=== PATIENT | female | born 1985 | race Caucasian/White ===

== ENCOUNTER 2016-10-04 23:04 | Observation (INO) ==
[2016-10-05 00:29] LABS: Bilirubin,Urine Negative (Negative); Blood,Urine Negative (Negative); Clarity,Urine Cloudy (Clear); Color,Urine Yellow (Yellow); Glucose,Urine (UA) Normal (Normal); Ketones,Urine Negative (Negative); Leukocyte Esterase,Urine Trace (Negative); Nitrite,Urine Negative (Negative); PH,Urine 6.5 pH Units (5.0-8.0); Protein,Urine Negative (Neg-Trace); Specific Gravity,Urine 1.015 (1.010-1.025); Urobilinogen,Urine Normal (Normal)
[2016-10-05 00:31] LABS: Hyaline Casts,Urine None Seen per lpf (None-Few); RBC,Urine 0-3 per hpf (0-3); Squamous Epithelial Cell,Urine Many per lpf (None-Few)
[2016-10-05] MEDS ORDERED: Terbutaline 1 MG/ML VIAL SQ ONE (00:31)
--- NOTE | 2016-10-05 00:37 | OB/GYN Progress Note ---
Date of Encounter: 10/05/16 Time of Encounter: 00:35 - Assessment and Plan (1) 29 weeks gestation of Status: Acute (2) contractions Status: Acute Contractions spontaneously resolved with observation. Discharged home, to f/u as scheduled Subjective - Subjective Interval history: To L&D at 29 weeks with c/o feeling fatigue, upper abdominal pain today, now in her lower back. reports presence of contractions, had recent intercourse. Denies any vaginal bleeding, leaking of fluid, discharge, or dysuria. Objective - Vital Signs Vital Signs: Intake and Output 10/04/16 10/04/16 10/05/16 15:59 23:59 07:59 Other: Weight 85.1 kg - Exam FHR comments: appropriate for gestational age. Cervical dilation: closed/thick Comments: contractions present, every 4-6 minutes. - Labs Labs: Abnormal lab results Urine Clarity Cloudy (Clear) A 10/05/16 00:01 Ur Leukocyte Esterase Trace (Negative) H 10/05/16 00:01
[2016-10-05 00:43] LABS: Bacteria,Urine Moderate per hpf (None-Few)
[2016-10-05 00:44] LABS: Mucus,Urine Few (Few)
== END 2016-10-05 01:54 | disposition home or self-care (01) ==
LOC: 1NENULAB

== ENCOUNTER 2016-12-14 06:00 | Inpatient (IN) ==
[2016-12-14] MEDS ORDERED: Metoclopramide 10 MG/2 ML VIAL IVP PRN (06:09)
[2016-12-14] MEDS ORDERED: Famotidine 20 MG/2 ML VIAL IVP PRN (06:09)
[2016-12-14] MEDS ORDERED: Naloxone 0.4 MG/ML INJ IVP PRN (06:09)
[2016-12-14] MEDS ORDERED: *HR* Nalbuphine 20 MG/ML AMPUL IVP PRN (06:11)
[2016-12-14] MEDS ORDERED: D5% in 0.45% NACL 1,000 ML IVC SCH (06:15)
[2016-12-14] MEDS ORDERED: miSOPROStol 100 MCG TABLET PO SCH (06:15)
[2016-12-14] MEDS ORDERED: Lidocaine -MPF 1% 2 ML VIAL ONE (06:31)
[2016-12-14 06:47] LABS: Basophils % 0.1 %; Eosinophils # 0.1 K/mcL (0.0-0.6); Eosinophils % 1.4 %; Hematocrit 38.3 % (35.3-44.9); Hemoglobin 12.6 g/dL (11.5-15.4); Immature Granulocytes % 0.8 % (0-4); Lymphocytes # 1.9 K/mcL (0.6-4.6); Lymphocytes % 22.9 %; Mean Corpuscular HGB Conc 32.9 g/dL (31.6-35.5); Mean Corpuscular Hemoglobin 29.3 pg (28.0-33.3); Mean Corpuscular Volume 89.1 fL (83.0-100.0); Mean Platelet Volume 11.3 fL (9.4-12.4); Monocytes # 0.6 K/mcL (0.0-1.3); Monocytes % 7.1 %; Neutrophils # 5.7 K/mcL (1.6-8.9); Platelet Count 144 K/mcL (140-400); Red Cell Distribution Width 15.7 % (11.5-14.5); Segmented Neutrophils % 67.7 %
--- NOTE | 2016-12-14 08:21 | Anesthesia Evaluation PreOp ---
Date of Encounter: 12/14/16 Time of Encounter: 08:20 - Past History Planned Operation: labor epidural Cardiac History: Denies any Significant Hx Pulmonary History: Denies Any Significant HX HAND [employer] History: Denies Any Significant HX, Other (depression.) Other Medical History: Denies Any Significant HX Anesthesia History: No Prior Anesthetic Complications (no previous surgeries. Has had epidural anesthesia x8 without complication.) : Yes Alcohol Use: none, unknown Drug use: none, unknown Medications and Allergies Vit/FA 1 each PO DAILY #30 tablet 07/05/15 [Rx] Allergies No Known Allergies Allergy (Verified 12/14/16 06:33) - Meds/Allergy Pre-op Review Medications Reviewed: Yes Allergies Reviewed: Yes Beta Blockers on Current Med List: No Anesthesia Results - Labs 12/14/16 06:30 Anesthesia Exam 125/72, 82, 18, 99%. Height: 5'4" Weight: 88 kg NPO (# of Hours): 12 Pain Scale: 3 Pain Scale Used: Numeric (1 - 10) - HEENT Pupil (Motor): Pupils equal Mallampati: IV Teeth: Poor dentition Oral Opening: Greater than 3 - HAND [employer] LOC: Oriented HAND [employer] Motor: Normal RUE, Normal LUE, Normal RLE, Normal LLE, Normal Face HAND [employer] Sensory: Normal: RUE, LUE, RLE, LLE, Face - Cardiac Rhythm: Regular - Pulmonary Breath Sounds: bilateral Clear Respiratory Effort: Symmetrical Anesthesia Assess/Plan ASA Score: 2 Modified [place] Scale for Level of Consciousness: Cooperative, oriented, and tranquil Anesthetic Plan: Regional Monitoring Plan: Standard Monitors
[2016-12-14] MEDS ORDERED: Bupivacaine-MPF 0.25% 10 ML VIAL EP ONE (08:24)
[2016-12-14] MEDS ORDERED: *HR* FentaNYL (PF) 100 MCG/2 ML VIAL EP ONE (08:24)
[2016-12-14] MEDS ORDERED: Epidural Premix (fent/bupiv) 110 ML EP SCH (08:30)
[2016-12-14] MEDS ORDERED: Ringers Solution, Lactated 2,000 ML ONE (10:02)
--- NOTE | 2016-12-14 10:04 | OB/GYN History & Physical ---
Date of Encounter: 12/14/16 Time of Encounter: 10:00 Assessment and Plan (1) Grand multipara in labor in third trimester Current visit: Yes Status: Acute admit to labor and delivery (2) Elective induction of labor planned Current visit: No Status: Acute cytotec 50mcg PO x1 Carmona catheter for induction placed by Dr. Oumar Johnson or Epidural for pain management History of Present Illness Chief complaint: IOL at 39w[address]d [address] Dr[address] Oseguera HPI: Ms. Reyes is a 31 year old female at 39w5d presents to labor and delivery for IOL for gestational age greater than 39 weeks with history of shoulder dystocia and macrosomia. Patient reports +FM and contractions. Denies LOF. Patient had a carmona catheter placed for Induction per Dr. Oseguera. Carmona catheter ballon has expelled and patient would like to have an epidural for pain management. Blood type: O+, Rubella: Immune, Hep B: nonreactive, RPR: Negative, Varicella: Positive, GBS: Negative. Past Med Surg Social Fam HX - Past Medical History Source: patient Medical history: asthma Psychiatric history: depression - Past Surgical History Surgical History: no surgical history - Social History Smoking Status: Never smoker Smokeless Tobacco Status: No Alcohol use: none, unknown Drug use: none, unknown Current living situation: Home - Independent Recent Out of Country Travel Within the Last 8 Weeks: No Exposure or Possible Exposure to Illness During Travel: No - Family History Mother Living Status: Still Living Hx Family Cardiac Disorders: No Hx Family Respiratory Disorders: No Hx Family Cancer: No Hx Family GI Disorders: No Hx Family Endocrine Disorder: No Hx Family Neuromuscular Disorders: No Hx Family Neurologic Disorders: No Hx Family HEENT Disorders: No Hx Family Autoimmune Disorders: No Obstetrical History - Pregnancies : 10 Para: 8 Term: 8 : 0 Ab's: 1 Livin Medications and Allergies Vit/FA 1 each PO DAILY #30 tablet 07/05/15 [Rx] Allergies No Known Allergies Allergy (Verified 12/14/16 06:33) Review of System OB - Constitutional Constitutional ROS IM: no chills, no fever(s), no headache(s), no weakness - Cardiovascular Cardiovascular: no dyspnea, no edema, no palpitations, no syncope - Respiratory Respiratory: no cough, no dyspnea - Gastrointestinal Gastrointestinal: no cramping, no diarrhea, no heartburn, no nausea, no vomiting - Genitourinary Genitourinary: no abnormal vaginal bleeding, no dysuria, no flank pain, no urinary frequency, no urinary urgency, no vaginal discharge, no vaginal odor, no vaginal pruritis Exam - Vital Signs Vital signs: Initial Vital Signs Temp Pulse Resp BP 98.0 F 82 16 125/72 12/14/16 06:22 12/14/16 06:22 12/14/16 06:22 12/14/16 06:22 - Constitutional Constitutional: well developed, well nourished, no acute distress, average body habitus - HEENT HEENT: Normocephaly, Mucus Membranes Moist - Neck Neck exam: full ROM, supple - Lungs Respiratory exam: CTAB - Cardiovascular Cardiovascular exam: RRR, +S1, +S2 - Abdomen Abdomen: Present: bowel sounds normal, gravid, non tender - Extremities Extremities exam: full ROM, normal capillary refill, normal inspection Deep Tendon Reflex Grade: 2+ Normal - Vagina Vagina: Present: normal moisture - Uterus Uterus exam: Present: normal size, normal contour - Anus/Rectum Anus/Rectum: Present: normal perianal skin (SVE 4/80/-1, FHR 135 bpm moderate variability +15x15 accels no decels noted CAt. 1 tracing. Contractions 1-4min apart) Results Result Diagrams: 12/14/16 06:30 Abnormal lab results RDW 15.7 % (11.5-14.5) H 12/14/16 06:30 All other labs normal. - VTE Reasons for not Prescribing Prophylaxis: Treatment not Indicated - Low risk for VTE
[2016-12-14] MEDS ORDERED: *HR* FentaNYL (PF) 100 MCG/2 ML VIAL ONE (10:09)
[2016-12-14] MEDS ORDERED: Bupivacaine-MPF 0.25% 10 ML VIAL ONE (10:09)
[2016-12-14] MEDS ORDERED: Epidural Premix (fent/bupiv) 110 ML EP ONE ×2 (10:10→17:07)
[2016-12-14] MEDS ORDERED: Lidocaine 1% 20 ML MDV ONE (10:38)
--- NOTE | 2016-12-14 11:22 | OB Labor Progress Note ---
Date of Encounter: 12/14/16 Time of Encounter: 11:20 Labor Progress Note - Subjective Subjective: Patient resting with epidural in place. Patient denies any pain at this time. Alcaraz catheter draining clear yellow urine. Discussed POC with patient. patient denies any questions or concerns. - Cervix Cervix: 5/80/0 - Heart Tones Heart Tones: 135 bpm moderate variability +15x15 accels no decels noted. CAt. 1 tracing. - [place]: 2-4 min apart - Interventions Interventions: SVE, AROM moderate amount of clear fluid. Patient tolerated well. - Plan Plan: Continue labor management. Will start Pitocin per protocol.
[2016-12-14] MEDS ORDERED: Oxytocin 20 units/ LR 1000 mL 20 UNIT/1,000 ML BAG IVC SCH ×2 (11:30→20:05)
--- NOTE | 2016-12-14 12:05 | Anesthesia Procedures ---
Date of Encounter: 12/14/16 Time of Encounter: 10:15 Procedures: Anesthesia - Epidural/Spinal Patient ID/Chart reviewed: Yes Patient examined: Yes OB Eval: Gestational age: 39 OB Eval: : 10 OB Eval: Hx Para: 8 OB Eval: Contractions: Non-stressed pattern Consent Obtained: Yes Supplemental Oxygen: None/Room Air Site Prep: Aseptic Technique, Sterile prep and drape, Povidone-Iodine 1% Patient position: upright Local Anesthetic: Lidocaine 1% Amount of Local Anesthetic used: 5 Touhy Needle Gauge: 18 Touhy Needle Depth (cm): 6 Catheter Depth at Skin (cm): 18 Test Dose (1.5% Lido + Epi): Volume given (mls): 3 Test Dose Result: Negative Loading Dose: 0.25% Marcaine (mls): 8 Loading Dose: Fentanyl (mcg): 100 Loading Dose Administered: Thru Catheter Infusion Med: 0.125% Bupivacaine w/ 2 mcg/ml Fentanyl Infusion Rate (mls/hr): [address]: Tegaderm, Tape Interspace Used: L3-L4 Loss of Resistance (ROBERTA): Yes Blood: No CSF: No Paresthesia: No Procedure: Made several attempts to locate epidural space, was successful at L2-3 but catheter would not thread. Was successful at L3-4. Patient tolerated procedure very well and maternal VS and FHTs remained stable throughout procedure. Vitals + FHT's: 3 Vital Signs Time 1015 1040 1050 1055 BP 136/79 127/74 128/74 126/75 Pulse 80 79 68 69 FHTs 352 485 0177 120
--- NOTE | 2016-12-14 14:27 | OB Labor Progress Note ---
Date of Encounter: 12/14/16 Time of Encounter: 14:24 Labor Progress Note - Subjective Subjective: Patient comfortable with epidural in place. Patient denies any pain at this time. Pitocin at 10 milliunits. - Cervix Cervix: 5/80/0 - Heart Tones Heart Tones: 125 bpm moderate variability +15x15 accels no decels noted. CAt. 1 tracing - [place]: 2-4 min apart - Interventions Interventions: SVE, IUPC placed without difficulty. Patient tolerated well. Patient placed on left side with peanut ball. - Plan Plan: Continue labor managemen.
--- NOTE | 2016-12-14 17:13 | OB Labor Progress Note ---
Date of Encounter: 12/14/16 Time of Encounter: 17:11 Labor Progress Note - Subjective Subjective: Pt. comfortable with epidural. - Cervix Cervix: 6-7/80%/VTX/0 - Heart Tones Heart Tones: Reactive FHR - [place]: Contraction approx every 3 minutes
[2016-12-14] MEDS ORDERED: Ringers Solution, Lactated 1,000 ML ONE (18:04)
--- NOTE | 2016-12-14 18:47 | OB/GYN Procedure Note ---
Delivery - Delivery Date: 12/14/16 Provider: Daniel Oseguera Intrapartum events: none Delivery induction: carmona, misoprostol Delivery augmentation: rupture of membranes, pitocin Delivery monitor: external FHT, external uterine, internal uterine Anesthesia: epidural Estimated Blood Loss: 100 - Infant (s) Infant A Delivery Date: 12/14/16 Delivery Time: 18:27 Presentation: vertex Position: RUBIO Route of delivery: Gender: Female Viability: Viable Pounds: 7 Ounces: 7 Weight Gram: 3380 kg at 1 minute: 8 at 5 mins: 9 Shoulder Dystocia: not encountered Specimens collected: cord blood Placenta: spontaneous Cord: nuchal cord, 3 umbilical vessels, delivered through nuchal - Repair Episiotomy: none Laceration Description: None - Complications Delivery complications: none - Disposition Mom disposition: stable in LDR [place] disposition: stable in LDR - Comments Comments: Patient progressed to complete dilatation and had a spontaneous vaginal delivery of a viable female infant. scores were 8 and 9 at one and 5 minutes respectively, and the infant weighed 7 lbs. 7 oz. The placenta delivered spontaneously and appeared to be intact. No episiotomy was performed, no lacerations were noted. All sponge needle and his counts reported as correct. A nuchal cord 1 was present the infant was delivered through this loop of cord without difficulty. No shoulder dystocia was encountered. Estimate blood loss 100 mL.
[2016-12-14] MEDS ORDERED: Acetaminophen 325 MG TABLET PO PRN (20:05)
[2016-12-14] MEDS: Ibuprofen 600 MG TABLET PO PRN (20:35)
[2016-12-15 04:10] LABS: Basophils % 0.2 %; Eosinophils # 0.1 K/mcL (0.0-0.6); Eosinophils % 1.1 %; Hematocrit 33.3 % (35.3-44.9); Hemoglobin 11.3 g/dL (11.5-15.4); Immature Granulocytes % 0.5 % (0-4); Lymphocytes # 1.9 K/mcL (0.6-4.6); Lymphocytes % 16.6 %; Mean Corpuscular HGB Conc 33.9 g/dL (31.6-35.5); Mean Corpuscular Hemoglobin 29.9 pg (28.0-33.3); Mean Corpuscular Volume 88.1 fL (83.0-100.0); Mean Platelet Volume 11.2 fL (9.4-12.4); Monocytes # 0.9 K/mcL (0.0-1.3); Monocytes % 7.8 %; Neutrophils # 8.5 K/mcL (1.6-8.9); Platelet Count 170 K/mcL (140-400); Red Blood Count 3.78 M/mcL (3.82-4.97); Red Cell Distribution Width 15.6 % (11.5-14.5); Segmented Neutrophils % 73.8 %
[2016-12-15] MEDS: Ibuprofen 600 MG TABLET PO PRN ×3 (07:50→21:50)
[2016-12-15] MEDS ORDERED: Prenatal Vit/FA 1 EACH TABLET PO SCH (09:00)
--- NOTE | 2016-12-15 09:09 | OB/GYN Progress Note ---
Date of Encounter: 12/15/16 Time of Encounter: 09:07 - Assessment and Plan (1) Vaginal delivery Current Visit: Yes Status: Acute Continue current management. Will obtain PIH labs and urine P/C due to headache and increasing BP. If pain not managed on current PO medications will add Fiorcet. Subjective - Subjective Patient reports: appetite normal, other (severe frontal headache, but otherwise pain managed wtih po pain medication ) : doing well, bottle feeding Objective - Latest Vital Signs Latest vital signs: Vital Signs Temp Pulse Pulse Resp BP Pulse Ox 12/15/16 07:40 97.5 F L 62 16 134/85 96 12/15/16 03:50 97.5 F L 63 63 16 121/67 96 12/14/16 22:47 98 F 70 18 123/75 97 12/14/16 22:00 97.5 F L 59 16 133/87 96 12/14/16 21:00 98.5 F 72 16 115/77 95 Intake and Output 12/14/16 12/15/16 12/15/16 23:59 07:59 15:59 Intake Total 1350 / 1350 Output Total 150 / 150 1800 / 1800 Balance -150 / -150 -450 / -450 Intake: Oral 1350 / 1350 Output: Urine 150 / 150 1800 / 1800 Other: Weight 88 kg 84.912 kg Patient Weight 12/15/16 23:59 Weight 84.912 kg - Exam Lungs: bilateral: normal Chest: Normal S1, Normal S2 Extremities: Present: normal (+3 DTR) Abdomen: Present: normal appearance, soft Uterus: Present: normal, firm - Labs Labs: Laboratory Results - last 24 hr 12/15/16 03:58 WBC 11.5 H RBC 3.78 L Hgb 11.3 L Hct 33.3 L MCV 88.1 MCH 29.9 MCHC 33.9 RDW 15.6 H Plt Count 170 MPV 11.2 Immature Gran % 0.5 Seg Neutrophils % 73.8 Lymphocytes % 16.6 Monocytes % 7.8 Eosinophils % 1.1 Basophils % 0.2 Neutrophils # 8.5 Lymphocytes # 1.9 Monocytes # 0.9 Eosinophils # 0.1 Basophils # 0.0
[2016-12-15 09:54] LABS: Basophils % 0.1 %; Eosinophils # 0.1 K/mcL (0.0-0.6); Eosinophils % 0.9 %; Hematocrit 35.7 % (35.3-44.9); Hemoglobin 11.6 g/dL (11.5-15.4); Immature Granulocytes % 0.5 % (0-4); Immature Platelets 6.3 % (1.1-6.1); Lymphocytes # 1.4 K/mcL (0.6-4.6); Lymphocytes % 15.5 %; Mean Corpuscular HGB Conc 32.5 g/dL (31.6-35.5); Mean Corpuscular Hemoglobin 28.8 pg (28.0-33.3); Mean Corpuscular Volume 88.6 fL (83.0-100.0); Mean Platelet Volume 11.1 fL (9.4-12.4); Monocytes # 0.5 K/mcL (0.0-1.3); Monocytes % 5.7 %; Neutrophils # 7.1 K/mcL (1.6-8.9); Platelet Count 167 K/mcL (140-400); Red Blood Count 4.03 M/mcL (3.82-4.97); Red Cell Distribution Width 15.5 % (11.5-14.5); Segmented Neutrophils % 77.3 %
--- NOTE | 2016-12-15 09:56 | Anesthesia Progress Note ---
Date of Encounter: 12/15/16 Time of Encounter: 09:31 Anesthesia Note - Note Note: 12/15/16 09:45 patient VSS, c/o postural LOPEZ frontal sinus, never had this before. gets worse when getting up and sitting up in bed. no complicates vision, c/o of right ear auditory issues she cannot describe. recommendations increase hydration, abd. binder, increasing caffeine intake, informed just approaching 24 hrs post epidural to seek treatment in the ER if getting worse or any other symptoms appear like fever, stiff neck legs going numb etc...
[2016-12-15] MEDS: Acetaminophen/Butalbital/CaffeineTABLET PO PRN ×2 (10:01→18:38)
[2016-12-15 10:04] LABS: Alanine Aminotransferase 14 Units/L (0-55); Aspartate Amino Transferase 21 Units/L (5-34); BUN/Creatinine Ratio 12 (6-26); Blood Urea Nitrogen 8 mg/dL (7-20); Lactate Dehydrogenase 230 Units/L (159-327); Uric Acid 5.8 mg/dL (2.6-6.0); eGFR For African Americans > 60 (> 60); eGFR For Non-African Americans > 60 (> 60)
--- NOTE | 2016-12-15 19:42 | Discharge Summary ---
Date of Encounter: 12/15/16 Time of Encounter: 19:41 - Discharge Diagnosis (1) Vaginal delivery Priority: Primary Status: Acute Comments: Pt states spinal headache has improved. - Discharge Medications Prescriptions: Acetaminophen/Butalbital/Caffe [Fioricet] 1 each PO Q6HR PRN #10 tablet PRN Reason: Headache Ibuprofen [Motrin] 600 mg PO Q6HR PRN #60 tablet PRN Reason: Cramping Home Medications: Vit/FA 1 each PO DAILY #30 tablet 07/05/15 [Rx] Acetaminophen [Tylenol] 650 mg PO Q6HR PRN #0 tablet 12/15/16 [Rx] Acetaminophen/Butalbital/Caffe [Fioricet] 1 each PO Q6HR PRN #10 tablet [Rx] Ibuprofen [Motrin] 600 mg PO Q6HR PRN #60 tablet 12/15/16 [Rx] Allergies/Adverse Reactions: Allergies No Known Allergies Allergy (Verified 12/14/16 06:33) Data Procedures and tests throughout hospitalization: Laboratory Tests 12/14/16 12/15/16 12/15/16 06:30 03:58 09:39 WBC 8.4 11.5 H 9.2 RBC 4.30 3.78 L 4.03 Hgb 12.6 11.3 L 11.6 Hct 38.3 33.3 L 35.7 MCV 89.1 88.1 88.6 MCH 29.3 29.9 28.8 MCHC 32.9 33.9 32.5 RDW 15.7 H 15.6 H 15.5 H Plt Count 144 170 167 MPV 11.3 11.2 11.1 Immature Gran % 0.8 0.5 0.5 Seg Neutrophils % 67.7 73.8 77.3 Lymphocytes % 22.9 16.6 15.5 Monocytes % 7.1 7.8 5.7 Eosinophils % 1.4 1.1 0.9 Basophils % 0.1 0.2 0.1 Neutrophils # 5.7 8.5 7.1 Lymphocytes # 1.9 1.9 1.4 Monocytes # 0.6 0.9 0.5 Eosinophils # 0.1 0.1 0.1 Basophils # 0.0 0.0 0.0 Immature Plt Fraction 6.3 H BUN Creatinine Est GFR ( Amer) Est GFR (Non-Af Amer) BUN/Creatinine Ratio Uric Acid AST ALT Lactate Dehydrogenase 12/15/16 09:39 WBC RBC Hgb Hct MCV MCH MCHC RDW Plt Count MPV Immature Gran % Seg Neutrophils % Lymphocytes % Monocytes % Eosinophils % Basophils % Neutrophils # Lymphocytes # Monocytes # Eosinophils # Basophils # Immature Plt Fraction BUN 8 Creatinine 0.65 Est GFR ( Amer) > 60 Est GFR (Non-Af Amer) > 60 BUN/Creatinine Ratio 12 Uric Acid 5.8 AST 21 ALT 14 Lactate Dehydrogenase 230 Labs on day of discharge: Labs from last 24 hours 12/15/16 12/15/16 12/15/16 09:39 09:39 03:58 WBC 9.2 11.5 H RBC 4.03 3.78 L Hgb 11.6 11.3 L Hct 35.7 33.3 L MCV 88.6 88.1 MCH 28.8 29.9 MCHC 32.5 33.9 RDW 15.5 H 15.6 H Plt Count 167 170 MPV 11.1 11.2 Immature Gran % 0.5 0.5 Seg Neutrophils % 77.3 73.8 Lymphocytes % 15.5 16.6 Monocytes % 5.7 7.8 Eosinophils % 0.9 1.1 Basophils % 0.1 0.2 Neutrophils # 7.1 8.5 Lymphocytes # 1.4 1.9 Monocytes # 0.5 0.9 Eosinophils # 0.1 0.1 Basophils # 0.0 0.0 Immature Plt Fraction 6.3 H BUN 8 Creatinine 0.65 Est GFR ( Amer) > 60 Est GFR (Non-Af Amer) > 60 BUN/Creatinine Ratio 12 Uric Acid 5.8 AST 21 ALT 14 Lactate Dehydrogenase 230 Date of admission: 12/14/16 06:04 Primary care physician: Scarlett Webster, Consults: 12/14/16 20:05 Consult to Interior Wall Assembler [CONS] Routine Comment: Vaginal delivery, consult needed Discharging clinician: Lissette Akhtar Anticipated date of discharge: 12/15/16 - Patient Status Disposition: Home, Self-Care Condition: Good Functional capacity at discharge: independent ambulation Overall status at discharge: patient is back to baseline - Discharge Instructions Follow Up With: Daniel Oseguera DO [Partnered Physician] - (January 12, 2017 @ 1:00 pm) Scarlett Webster MD [Primary Care Provider] - - Diet and Activity Activity: resume usual activities as tolerated Diet: regular diet Hospital Course Reason for admission: IUP at term Delivery: Episiotomy: none Laceration: none Other procedures: none complications: spinal headache Discharge diagnosis: IUP at term delivered baby: female Hospital course: Delivery - Delivery Date: 12/14/16 Provider: Daniel Oseguera Intrapartum events: none Delivery induction: carmona, misoprostol Delivery augmentation: rupture of membranes, pitocin Delivery monitor: external FHT, external uterine, internal uterine Anesthesia: epidural Estimated Blood Loss: 100 - (s) Infant A Infant Delivery Date: 12/14/16 Delivery Time: 18:27 Presentation: vertex Position: RUBIO Route of delivery: Gender: Female Viability: Viable Pounds: 7 Ounces: 7 Weight Gram: 3380 kg at 1 minute: 8 at 5 mins: 9 Shoulder Dystocia: not encountered Specimens collected: cord blood Placenta: spontaneous Cord: nuchal cord, 3 umbilical vessels, delivered through nuchal - Repair Episiotomy: none Laceration Description: None - Complications Delivery complications: none - Disposition Mom disposition: stable in and appropriate for discharge Time Attestation: Total time spent providing and/or coordinating discharge services: Time Spent: Less than 30 minutes Exam - Constitutional Vitals: Temp Pulse Resp BP Pulse Ox 97.5 F L 62 16 134/85 96 12/15/16 07:40 12/15/16 07:40 12/15/16 07:40 12/15/16 07:40 12/15/16 07:40 General appearance IM: A&O X 3, pleasant, no acute distress - Respiratory Respiratory exam: Present: CTAB - Cardiovascular Cardiovascular exam IM: Present: RRR - GI/Abdominal GI/Abdominal exam IM: soft - Uterine Tone: Firm - Extremities Exam Extremities exam IM: Present: normal inspection - Neurological Exam Neurological exam: normal gait, oriented X3 - Psychiatric Additional comments: Reports good mood
[2016-12-15 23:06] VITALS: BP 146/94
== END 2016-12-15 22:30 | disposition home or self-care (01) | DRG 560 ==
LOC: 1NENULAB 06:04 → 1NENUOBS 20:55

== ENCOUNTER 2018-01-03 08:00 | Inpatient (IN) ==
[2018-01-03] MEDS ORDERED: Naloxone 0.4 MG/ML INJ IVP PRN (09:00)
[2018-01-03] MEDS ORDERED: Ondansetron 4 MG/2 ML VIAL IVP PRN (09:00)
[2018-01-03] MEDS ORDERED: *HR* Nalbuphine 10 MG/ML AMPUL IVP PRN (09:00)
[2018-01-03] MEDS ORDERED: Lidocaine 1% 20 ML MDV ID PRN (09:00)
[2018-01-03] MEDS ORDERED: Famotidine 20 MG/2 ML VIAL IVP PRN (09:00)
[2018-01-03] MEDS ORDERED: Lidocaine 1% 20 ML MDV INFILT PRN (09:00)
[2018-01-03] MEDS ORDERED: Lidocaine -MPF 1% 2 ML VIAL ONE (09:04)
[2018-01-03] MEDS ORDERED: Oxytocin 20 units/ LR 1000 mL 20 UNIT/1,000 ML BAG IVC SCH ×2 (09:15→18:39)
[2018-01-03 09:33] LABS: Basophils % 0.2 %; Eosinophils # 0.1 K/mcL (0.0-0.6); Eosinophils % 0.9 %; Hematocrit 33.2 % (35.3-44.9); Hemoglobin 10.8 g/dL (11.5-15.4); Immature Granulocytes % 0.4 % (0-4); Mean Corpuscular HGB Conc 32.5 g/dL (31.6-35.5); Mean Corpuscular Hemoglobin 27.7 pg (28.0-33.3); Mean Corpuscular Volume 85.1 fL (83.0-100.0); Monocytes # 0.6 K/mcL (0.0-1.3); Monocytes % 7.9 %; Neutrophils # 5.4 K/mcL (1.6-8.9); Platelet Count 152 K/mcL (140-400); Red Cell Distribution Width 14.2 % (11.5-14.5); Segmented Neutrophils % 66.6 %
[2018-01-03 09:56] LABS: Amphetamine Screen,Urine Negative ng/mL (Cutoff=1000); Barbiturate Screen,Urine Negative ng/mL (Cutoff=200); Benzodiazepines Screen,Urine Negative ng/mL (Cutoff=200); Cannabinoid Screen,Urine Negative ng/mL (Cutoff = 50); Cocaine Screen,Urine Negative ng/mL (Cutoff= 300); Opiate Screen,Urine Negative ng/mL (Cutoff=300); Phencyclidine Screen,Urine Negative ng/mL (Cutoff=25)
--- NOTE | 2018-01-03 10:01 | OB/GYN History & Physical ---
Date of Encounter: 01/03/18 Time of Encounter: 09:58 Assessment and Plan (1) 39 weeks gestation of Current visit: Yes Status: Acute (2) Elective induction of labor planned Current visit: Yes Status: Acute Induction of labor with Pitocin and cervical Alcaraz Cervical Alcaraz inserted without difficulty inflated with 60 mL balloon Nubain and epidural as desired Anticipate (3) Grand multipara in labor in third trimester Current visit: Yes Status: Acute History of Present Illness HPI: Ms. Reyes is a 32 year old female here for an elective induction of labor. Uncomplicated course with the exception of grand multiparity. History of shoulder dystocia with baby #8, no other problems or hemorrhage associated with deliveries. Patient received care from Dr. Oseguera Labs: O+, rubella and varicella immune, GBS negative, all other serologies negative Past Med Surg Social Fam HX - Past Medical History Medical history: asthma Psychiatric history: depression - Past Surgical History Surgical History: no surgical history - Social History Smoking Status: Never smoker Smokeless Tobacco Status: No Alcohol use: none Drug use: none - Family History Mother History Unknown: Yes Living Status: Still Living Hx Family Cardiac Disorders: No Hx Family Respiratory Disorders: No Hx Family Cancer: No Hx Family GI Disorders: No Hx Family Genitourinary Disorders: No Hx Family Endocrine Disorder: No Hx Family Musculoskeletal Disorders: No Hx Family Neuromuscular Disorders: No Hx Family Neurologic Disorders: No Hx Family HEENT Disorders: No Hx Family Autoimmune Disorders: No Hx Family Reproductive Disorders: No Hx Family Psychosocial Disorders: No Hx Family Medical Disorders: No Obstetrical History - Pregnancies : 11 Para: 9 Term: 9 : 0 Ab's: 1 Livin Medications and Allergies Vit/FA 1 each PO DAILY #30 tablet 07/05/15 [Rx] Doxylamine Succinate [Unisom] 25 mg PO HS PRN 01/03/18 [History] Vitamin B-6 200 mg PO DAILY 01/03/18 [History] 3 Allergy/AdvReac Type Severity Reaction Status Date / Time No Known Allergies Allergy Verified 12/14/16 06:33 Exam - Constitutional Constitutional: well developed, well nourished, no acute distress, average body habitus - Neck Neck exam: full ROM - Lungs Respiratory exam: CTAB - Cardiovascular Cardiovascular exam: RRR - Abdomen Abdomen: Present: gravid, non tender - Extremities Extremities exam: normal capillary refill, normal inspection - Vulva Vulva: bilateral: normal - Vagina Vagina: Present: normal moisture - Cervix Dilation: 3 Effacement: 80 Station: -2 Results Result Diagrams: 01/03/18 08:31 Abnormal lab results Hgb 10.8 g/dL (11.5-15.4) L 01/03/18 08:31 Hct 33.2 % (35.3-44.9) L 01/03/18 08:31 MCH 27.7 pg (28.0-33.3) L 01/03/18 08:31 All other labs normal. - VTE Reasons for not Prescribing Prophylaxis: Treatment not Indicated - Low risk for VTE
[2018-01-03] MEDS ORDERED: *HR* FentaNYL (PF) 100 MCG/2 ML VIAL EP ONE (10:47)
[2018-01-03] MEDS ORDERED: EPHEDrine 50 MG/ML VIAL IVP PRN (10:47)
--- NOTE | 2018-01-03 10:47 | Anesthesia Evaluation PreOp ---
Date of Encounter: 01/03/18 Time of Encounter: 10:45 - Past History Planned Operation: allegra Cardiac History: Denies any Significant Hx Pulmonary History: Denies Any Significant HX CREDIT RATING CHECKER History: Denies Any Significant HX Other Medical History: Denies Any Significant HX Anesthesia History: No Prior Anesthetic Complications, Past Anesthesia (no past anesthetics, but no family history of anesthetic reactions) : Yes () Alcohol Use: none Drug use: none Medications and Allergies Vit/FA 1 each PO DAILY #30 tablet 07/05/15 [Rx] Doxylamine Succinate [Unisom] 25 mg PO HS PRN 01/03/18 [History] Vitamin B-6 200 mg PO DAILY 01/03/18 [History] 3 Allergy/AdvReac Type Severity Reaction Status Date / Time No Known Allergies Allergy Verified 12/14/16 06:33 - Meds/Allergy Pre-op Review Medications Reviewed: Yes Allergies Reviewed: Yes Beta Blockers on Current Med List: No Anesthesia Results - Labs 01/03/18 08:31 Anesthesia Exam O2 Sat Height 1.63 m Weight 88.8 kg Height: 64 Weight: 195 - HEENT Pupil (Motor): Pupils equal Mallampati: II Teeth: Normal Oral Opening: Greater than 3 - CREDIT RATING CHECKER LOC: Oriented CREDIT RATING CHECKER Motor: Normal RUE, Normal LUE, Normal RLE, Normal LLE, Normal Face CREDIT RATING CHECKER Sensory: Normal: RUE, LUE, RLE, LLE, Face - Cardiac Rhythm: Regular Murmur: None JVD: No Carotid Bruit: No - Pulmonary Breath Sounds: bilateral Clear Respiratory Effort: Symmetrical Anesthesia Assess/Plan ASA Score: 2 Modified [place] Scale for Level of Consciousness: Cooperative, oriented, and tranquil Anesthetic Plan: Regional Monitoring Plan: Standard Monitors
[2018-01-03] MEDS ORDERED: Epidural Premix (fent/bupiv) 110 ML EP SCH (11:00)
[2018-01-03] MEDS: Ringers Solution, Lactated 1,000 ML IVC SCH ×2 (11:32→13:53)
[2018-01-03] MEDS ORDERED: Epidural Premix (fent/bupiv) 110 ML EP ONE (13:24)
[2018-01-03] MEDS ORDERED: Bupivacaine-MPF 0.25% 10 ML VIAL ONE (13:25)
--- NOTE | 2018-01-03 13:56 | Anesthesia Procedures ---
Date of Encounter: 01/03/18 Time of Encounter: 13:20 Procedures: Anesthesia - Epidural/Spinal Patient ID/Chart reviewed: Yes Patient examined: Yes OB Eval: Gestational age: 39 OB Eval: : 10 OB Eval: Hx Para: 9 OB Eval: Contractions: Non-stressed pattern Consent Obtained: Yes Supplemental Oxygen: None/Room Air Site Prep: Aseptic Technique Patient position: upright Local Anesthetic: Lidocaine 1% Amount of Local Anesthetic used: 3 Touhy Needle Gauge: 18 Touhy Needle Depth (cm): 7 Catheter Depth at Skin (cm): 12 Test Dose (1.5% Lido + Epi): Volume given (mls): 3 Test Dose Result: Negative Loading Dose: 0.25% Marcaine (mls): 7 Loading Dose: Fentanyl (mcg): 100 Loading Dose Administered: Thru Touhy Needle Infusion Med: 0.125% Bupivacaine w/ 2 mcg/ml Fentanyl Infusion Rate (mls/hr): [address]: Tegaderm Interspace Used: L3-L4 Loss of Resistance (ROBERTA): Yes Blood: No CSF: No Paresthesia: No
--- NOTE | 2018-01-03 14:48 | OB Labor Progress Note ---
Date of Encounter: 01/03/18 Time of Encounter: 14:46 Labor Progress Note - Subjective Subjective: Comfortable with epidural - Cervix Cervix: 4/80/-1 - Heart Tones Heart Tones: 125/moderate/+accels/-decels - [place]: 2 - Interventions Interventions: AROM for small amount clear fluid. - Plan Plan: Continue pitocin per policy Frequent repositioning Anticipate
--- NOTE | 2018-01-03 16:25 | OB/GYN Procedure Note ---
Delivery - Delivery Date: 01/03/18 Provider: Lissette Akhtar Intrapartum events: none Delivery induction: AROM, oxytocin, carmona Delivery monitor: external FHT, external uterine Anesthesia: epidural Estimated Blood Loss: 200 - Infant (s) Infant A Infant Delivery Date: 01/03/18 Infant Delivery Time: 16:04 Presentation: vertex Position: OA Route of delivery: Gender: Female Viability: Viable Pounds: 8 Ounces: 8 Weight Gram: 8860 kg at 1 minute: 8 at 5 mins: 9 Shoulder Dystocia: not encountered Shoulder Dystocia Maneuvers: Thomas maneuver, suprapubic pressure Shoulder dystocia time elapsed: 30 sec Specimens collected: cord blood Placenta: spontaneous - Repair Episiotomy: none Laceration Description: None - Complications Delivery complications: none Delivery comments: Elective induction of labor with Pitocin cervical [place] and AROM. Progressed to complete, maternal bearing down efforts of liveborn female. Vertex delivered OA, with restitution to LOT, 30 seconds shoulder dystocia encountered , maternal repositioning into Thomas, maternal effort did not deliver shoulders, maternal repositioning into Thomas again, suprapubic pressure applied anterior shoulder delivered under pubic bone, body easily followed. Father VAB assistant center director with delivery of body onto maternal abdomen. No nuchal cord encountered. Vigorous placed on maternal abdomen for drying and stimulation. Apgars 8/9. Placenta delivered spontaneously (Carmen) complete. Fundus massaged until firm at U Pitocin started per policy. Perineum intact no lacerations. EBL 200. Mother and were left bonding in recovery. - Disposition Mom disposition: stable in LDR disposition: stable in LDR
[2018-01-03] MEDS ORDERED: Ibuprofen 600 MG TABLET PO PRN (18:39)
[2018-01-03] MEDS ORDERED: Lanolin 28 GM TUBE TP PRN (18:39)
[2018-01-03] MEDS ORDERED: Acetaminophen 325 MG TABLET PO PRN (18:39)
[2018-01-03] MEDS ORDERED: Benzocaine/Menthol 56 GM AEROSOL SPRAY TP PRN (18:39)
[2018-01-04 04:59] LABS: Basophils % 0.1 %; Eosinophils # 0.1 K/mcL (0.0-0.6); Eosinophils % 1.4 %; Hematocrit 28.5 % (35.3-44.9); Immature Granulocytes % 0.3 % (0-4); Lymphocytes # 1.9 K/mcL (0.6-4.6); Lymphocytes % 21.3 %; Mean Corpuscular HGB Conc 32.3 g/dL (31.6-35.5); Mean Corpuscular Hemoglobin 27.7 pg (28.0-33.3); Mean Corpuscular Volume 85.8 fL (83.0-100.0); Mean Platelet Volume 11.7 fL (9.4-12.4); Monocytes # 0.7 K/mcL (0.0-1.3); Neutrophils # 6.1 K/mcL (1.6-8.9); Platelet Count 144 K/mcL (140-400); Red Blood Count 3.32 M/mcL (3.82-4.97); Red Cell Distribution Width 14.2 % (11.5-14.5); Segmented Neutrophils % 68.9 %
[2018-01-04 05:01] LABS: Hemoglobin 9.2 g/dL (11.5-15.4)
[2018-01-04] MEDS ORDERED: Prenatal Vit/FA 1 EACH TABLET PO SCH (09:00)
--- NOTE | 2018-01-04 11:34 | Discharge Summary ---
Date of Encounter: 01/04/18 Time of Encounter: 11:31 - Discharge Diagnosis (1) Breast feeding status of mother Priority: Secondary Status: Acute Comments: breastpump rx given (2) Vaginal delivery Priority: Primary Status: Acute Comments: Pt meeting milestones. She desires discharge home today. - Discharge Medications Prescriptions: Ibuprofen [Motrin] 600 mg PO Q6HR PRN #30 tablet PRN Reason: Cramping Breast Pump [BREAST PUMP] 1 each .ROUTE AD #1 each Docusate [Colace] 100 mg PO BID #30 capsule Home Medications: Vit/FA 1 each PO DAILY #30 tablet 07/05/15 [Rx] Benzocaine/Menthol [place] [Dermoplast [place]] 1 appl TP QID PRN aerosol 01/04/18 [Rx] Breast Pump [BREAST PUMP] 1 each .ROUTE AD #1 each 01/04/18 [Rx] Docusate [Colace] 100 mg PO BID #30 capsule 01/04/18 [Rx] Ferrous Sulfate 325 mg PO DAILY tablet 01/04/18 [Rx] Ibuprofen [Motrin] 600 mg PO Q6HR PRN #30 tablet 01/04/18 [Rx] Lanolin 1 appl TP QID PRN tube 01/04/18 [Rx] Allergies/Adverse Reactions: 3 Allergy/AdvReac Type Severity Reaction Status Date / Time No Known Allergies Allergy Verified 12/14/16 06:33 Data Procedures and tests throughout hospitalization: Laboratory Tests 01/03/18 01/03/18 01/04/18 08:31 09:15 04:20 WBC 8.1 8.9 RBC 3.90 3.32 L Hgb 10.8 L 9.2 L D Hct 33.2 L 28.5 L MCV 85.1 85.8 MCH 27.7 L 27.7 L MCHC 32.5 32.3 RDW 14.2 14.2 Plt Count 152 144 MPV 11.0 11.7 Immature Gran % 0.4 0.3 Seg Neutrophils % 66.6 68.9 Lymphocytes % 24.0 21.3 Monocytes % 7.9 8.0 Eosinophils % 0.9 1.4 Basophils % 0.2 0.1 Neutrophils # 5.4 6.1 Lymphocytes # 2.0 1.9 Monocytes # 0.6 0.7 Eosinophils # 0.1 0.1 Basophils # 0.0 0.0 Urine Opiates Screen Negative Ur Barbiturates Screen Negative Ur Phencyclidine Scrn Negative Ur Amphetamines Screen Negative U Benzodiazepines Scrn Negative Urine Cocaine Screen Negative U Marijuana (THC) Screen Negative Labs on day of discharge: Labs from last 24 hours 01/04/18 04:20 WBC 8.9 RBC 3.32 L Hgb 9.2 L D Hct 28.5 L MCV 85.8 MCH 27.7 L MCHC 32.3 RDW 14.2 Plt Count 144 MPV 11.7 Immature Gran % 0.3 Seg Neutrophils % 68.9 Lymphocytes % 21.3 Monocytes % 8.0 Eosinophils % 1.4 Basophils % 0.1 Neutrophils # 6.1 Lymphocytes # 1.9 Monocytes # 0.7 Eosinophils # 0.1 Basophils # 0.0 Date of admission: 01/03/18 16:04 Primary care physician: PCP NONE Consults: 01/03/18 18:39 Consult to Grape Pruner [CONS] Routine Comment: Vaginal delivery, consult needed Discharging clinician: Denisse Mckee Anticipated date of discharge: 01/04/18 - Patient Status Disposition: Home, Self-Care Condition: Good Functional capacity at discharge: independent ambulation Overall status at discharge: patient is progressing back to baseline - Discharge Instructions Follow Up With: NONE,PCP [Primary Care Provider] - Daniel Oseguera DO [Partnered Physician] - - Diet and Activity Activity: increase activity as tolerated Diet: regular diet Hospital Course Reason for admission: induction of labor Delivery: Episiotomy: none Laceration: none Other procedures: none complications: none Discharge diagnosis: IUP at term delivered baby: female Hospital course: - Delivery Date: 01/03/18 Provider: Lissette Akhtar Intrapartum events: none Delivery induction: AROM, oxytocin, carmona Delivery monitor: external FHT, external uterine Anesthesia: epidural Estimated Blood Loss: 200 - (s) A Delivery Date: 01/03/18 Delivery Time: 16:04 Presentation: vertex Position: OA Route of delivery: Gender: Female Viability: Viable Pounds: 8 Ounces: 8 Weight Gram: 8860 kg at 1 minute: 8 at 5 mins: 9 Shoulder Dystocia: not encountered Shoulder Dystocia Maneuvers: Thomas maneuver, suprapubic pressure Shoulder dystocia time elapsed: 30 sec Specimens collected: cord blood Placenta: spontaneous - Repair Episiotomy: none Laceration Description: None - Complications Delivery complications: none - Disposition Mom disposition: home PPD#1 disposition: home with mother, Time Attestation: Total time spent providing and/or coordinating discharge services: Time Spent: Less than 30 minutes Exam - Constitutional Vitals: Temp Pulse Resp BP Pulse Ox 97.4 F L 72 16 123/75 98 01/04/18 08:00 01/04/18 08:00 01/04/18 08:00 01/04/18 08:00 01/04/18 04:00 General appearance IM: A&O X 3 - Respiratory Respiratory exam: Present: CTAB - Cardiovascular Cardiovascular exam IM: Present: RRR - GI/Abdominal GI/Abdominal exam IM: soft - Uterine Tone: Firm - Extremities Exam Extremities exam IM: Present: normal inspection - Neurological Exam Neurological exam: normal gait, oriented X3 - Psychiatric Additional comments: reports good mood
[2018-01-04 16:14] VITALS: BP 115/73
== END 2018-01-04 17:35 | disposition home or self-care (01) | DRG 560 ==
LOC: 1NENULAB 08:25 → 1NENUOBS 18:38
PROVIDERS: ADMIT Student in an Organized Health Care Education/Training Program; ATTEND Student in an Organized Health Care Education/Training Program

== ENCOUNTER 2019-07-14 09:02 | Observation (INO) ==
[2019-07-17 16:26] LABS: Amphetamine Screen,Urine Negative ng/mL (Cutoff=1000); Barbiturate Screen,Urine Negative ng/mL (Cutoff=200); Benzodiazepines Screen,Urine Negative ng/mL (Cutoff=200); Cannabinoid Screen,Urine Negative ng/mL (Cutoff = 50); Cocaine Screen,Urine Negative ng/mL (Cutoff= 300); Opiate Screen,Urine Negative ng/mL (Cutoff=300); Phencyclidine Screen,Urine Negative ng/mL (Cutoff=25)
== END 2019-07-14 11:04 | disposition home or self-care (01) ==
LOC: 1NENULAB
PROVIDERS: ADMIT Registered Nurse; ATTEND Registered Nurse

== ENCOUNTER 2019-07-24 08:00 | Inpatient (IN) ==
[2019-07-24] MEDS ORDERED: Metoclopramide 10 MG/2 ML VIAL IVP PRN (08:37)
[2019-07-24] MEDS ORDERED: *HR* Nalbuphine 10 MG/ML AMPUL IVP PRN (08:37)
[2019-07-24] MEDS ORDERED: Famotidine 20 MG/2 ML VIAL IVP PRN (08:37)
[2019-07-24] MEDS ORDERED: Ondansetron 4 MG/2 ML VIAL IVP PRN (08:37)
[2019-07-24] MEDS ORDERED: Ringers Solution, Lactated 1,000 ML IVC SCH (08:45)
[2019-07-24] MEDS ORDERED: miSOPROStol 25 MCG TABLET PO PRN (10:01)
[2019-07-24 10:34] LABS: Basophils % 0.3 %; Eosinophils # 0.1 K/mcL (0.0-0.6); Eosinophils % 1.3 %; Hematocrit 34.2 % (35.3-44.9); Hemoglobin 11.1 g/dL (11.5-15.4); Immature Granulocytes % 0.5 % (0-4); Lymphocytes # 1.9 K/mcL (0.6-4.6); Lymphocytes % 24.4 %; Mean Corpuscular HGB Conc 32.5 g/dL (31.6-35.5); Mean Corpuscular Hemoglobin 28.1 pg (28.0-33.3); Mean Corpuscular Volume 86.6 fL (83.0-100.0); Mean Platelet Volume 11.7 fL (9.4-12.4); Monocytes # 0.7 K/mcL (0.0-1.3); Monocytes % 8.2 %; Neutrophils # 5.2 K/mcL (1.6-8.9); Platelet Count 141 K/mcL (140-400); Red Blood Count 3.95 M/mcL (3.82-4.97); Red Cell Distribution Width 16.2 % (11.5-14.5); Segmented Neutrophils % 65.3 %; White Blood Count 7.9 K/mcL (4.3-11.1)
[2019-07-24 11:08] LABS: Amphetamine Screen,Urine Negative ng/mL (Cutoff=1000); Barbiturate Screen,Urine Negative ng/mL (Cutoff=200); Benzodiazepines Screen,Urine Negative ng/mL (Cutoff=200); Cannabinoid Screen,Urine Negative ng/mL (Cutoff = 50); Cocaine Screen,Urine Negative ng/mL (Cutoff= 300); Opiate Screen,Urine Negative ng/mL (Cutoff=300); Phencyclidine Screen,Urine Negative ng/mL (Cutoff=25)
[2019-07-24] MEDS ORDERED: Bupivacaine-MPF 0.25% 10 ML VIAL EP ONE (12:25)
[2019-07-24] MEDS ORDERED: *HR* FentaNYL (PF) 100 MCG/2 ML VIAL EP ONE (12:25)
[2019-07-24] MEDS ORDERED: Epidural Premix (fent/bupiv) 110 ML EP SCH (12:30)
[2019-07-24] MEDS ORDERED: Oxytocin 20 units/ LR 1000 mL 20 UNIT/1,000 ML BAG IVC SCH ×2 (14:45→23:51)
[2019-07-24] MEDS ORDERED: Acetaminophen 325 MG TABLET PO PRN ×2 (18:54→23:51)
[2019-07-24] MEDS ORDERED: Lanolin 7 G OINT...G. TP PRN (23:51)
[2019-07-24] MEDS ORDERED: Benzocaine/Menthol 56 GM AEROSOL SPRAY TP PRN (23:51)
[2019-07-25] MEDS: Ibuprofen 600 MG TABLET PO PRN ×3 (00:12→21:51)
[2019-07-25] MEDS ORDERED: Prenatal Vit/FA 1 EACH TABLET PO SCH (09:00)
[2019-07-25 21:35] VITALS: BP 129/85
== END 2019-07-25 22:05 | disposition home or self-care (01) | DRG 560 ==
LOC: 1NENULAB 08:03 → 1NENUOBS 23:53
PROVIDERS: ADMIT Obstetrics & Gynecology; ATTEND Obstetrics & Gynecology

== ENCOUNTER 2021-04-03 11:42 | Observation (INO) ==
[2021-04-03] MEDS ORDERED: Ringers Solution, Lactated 1,000 ML ONE (12:51)
[2021-04-03] MEDS ORDERED: Ringers Solution, Lactated 1,000 ML IVC ONE (12:56)
[2021-04-03] MEDS ORDERED: Acetaminophen/Butalbital/CaffeineTABLET PO PRN (13:22)
[2021-04-03] MEDS ORDERED: Ondansetron 4 MG/2 ML VIAL IVP ONE (13:24)
[2021-04-03 13:33] LABS: Bacteria,Urine Few per hpf (None-Few); Bilirubin,Urine Negative (Negative); Blood,Urine Negative (Negative); Clarity,Urine Turbid (Clear); Color,Urine Yellow (Yellow); Glucose,Urine (UA) Normal (Normal); Ketones,Urine Negative (Negative); Leukocyte Esterase,Urine Large (Negative); Mucus,Urine Many per lpf (None-Few); Nitrite,Urine Negative (Negative); PH,Urine 6.5 pH Units (5.0-8.0); Protein,Urine 50 mg/dL (Neg-Trace); Specific Gravity,Urine 1.028 (1.010-1.025); Squamous Epithelial Cell,Urine Many per hpf (None-Few); Urobilinogen,Urine Normal (Normal); WBC,Urine 15-30 per hpf (0-3)
[2021-04-03 17:29] LABS: BUN/Creatinine Ratio 9 (6-26); Blood Urea Nitrogen 4 mg/dL (6-20); Calcium 8.5 mg/dL (8.6-10.3); Carbon Dioxide 25 mEq/L (23-29); Chloride 107 mEq/L (98-107); Glucose 97 mg/dL (70-105); Osmolality,Calculated 281 (280-300); Potassium 3.7 mEq/L (3.5-5.1); Sodium 137 mEq/L (136-145); eGFR For African Americans > 60 (> 60); eGFR For Non-African Americans > 60 (> 60)
== END 2021-04-03 18:12 | disposition home or self-care (01) ==
LOC: 1NENULAB
PROVIDERS: ADMIT Student in an Organized Health Care Education/Training Program; ATTEND Student in an Organized Health Care Education/Training Program

== ENCOUNTER 2021-07-09 12:00 | Inpatient (IN) ==
[2021-07-09] MEDS ORDERED: EPHEDrine 50 MG/ML VIAL IVP PRN (14:41)
[2021-07-09] MEDS ORDERED: Epidural Premix (fent/bupiv) 110 ML EP SCH (14:45)
[2021-07-09] MEDS ORDERED: Naloxone 0.4 MG/ML INJ IVP PRN (15:29)
[2021-07-09] MEDS ORDERED: Lidocaine 1% 20 ML MDV INFILT PRN (15:29)
[2021-07-09] MEDS ORDERED: Azithromycin 500 MG in 0.9 % Sodium Chloride 250 ML IVPB PRN (15:29)
[2021-07-09] MEDS ORDERED: Ondansetron 4 MG/2 ML VIAL IVP PRN (15:29)
[2021-07-09] MEDS ORDERED: Metoclopramide 10 MG/2 ML VIAL IVP PRN (15:29)
[2021-07-09] MEDS ORDERED: Famotidine 20 MG/2 ML VIAL IVP PRN (15:29)
[2021-07-09] MEDS ORDERED: *HR* Nalbuphine 10 MG/ML AMPUL IV PRN (15:29)
[2021-07-09] MEDS ORDERED: Ringers Solution, Lactated 1,000 ML IVC SCH (15:30)
[2021-07-09] MEDS ORDERED: miSOPROStoL 25 MCG TABLET PO PRN (15:41)
[2021-07-09 15:50] LABS: Basophils % 0.2 %; Eosinophils # 0.1 K/mcL (0.0-0.6); Eosinophils % 0.6 %; Hematocrit 32.3 % (35.3-44.9); Hemoglobin 10.6 g/dL (11.5-15.4); Immature Granulocytes % 0.2 % (0-4); Lymphocytes % 24.3 %; Mean Corpuscular HGB Conc 32.8 g/dL (31.6-35.5); Mean Corpuscular Volume 85.4 fL (83.0-100.0); Mean Platelet Volume 11.7 fL (9.4-12.4); Monocytes # 0.5 K/mcL (0.0-1.3); Monocytes % 5.7 %; Neutrophils # 5.6 K/mcL (1.6-8.9); Platelet Count 198 K/mcL (140-400); Red Blood Count 3.78 M/mcL (3.82-4.97); Red Cell Distribution Width 13.8 % (11.5-14.5); White Blood Count 8.1 K/mcL (4.3-11.1)
[2021-07-09 16:24] LABS: Influenza A PCR Negative (Negative); Influenza B PCR Negative (Negative); Resp. Syncytial Virus PCR Negative (Negative)
[2021-07-09 16:41] LABS: SARS-CoV-2 by PCR (In House) Negative (Negative)
[2021-07-09] MEDS ORDERED: Famotidine 20 MG/2 ML VIAL IVP ONE (17:33)
[2021-07-09 19:15] LABS: Amphetamine Screen,Urine Negative ng/mL (Cutoff=1000); Barbiturate Screen,Urine Negative ng/mL (Cutoff=200); Benzodiazepines Screen,Urine Negative ng/mL (Cutoff=200); Cannabinoid Screen,Urine Negative ng/mL (Cutoff = 50); Cocaine Screen,Urine Negative ng/mL (Cutoff= 300); Opiate Screen,Urine Negative ng/mL (Cutoff=300); Phencyclidine Screen,Urine Negative ng/mL (Cutoff=25)
[2021-07-10] MEDS ORDERED: Lanolin 7 G OINT...G. TP PRN (08:41)
[2021-07-10] MEDS ORDERED: Benzocaine/Menthol 56 GM AEROSOL SPRAY TP PRN (08:41)
[2021-07-10] MEDS ORDERED: Measles/Mumps/Rubella Vacc 0.5 ML VIAL SQ PRN (08:41)
[2021-07-10] MEDS ORDERED: Ondansetron ODT 4 MG TAB.RAPDIS SL PRN (08:41)
[2021-07-10] MEDS ORDERED: Rho Immune Globulin 1,500 UNIT SYRINGE IM PRN (08:41)
[2021-07-10] MEDS ORDERED: [UNRECOGNIZED DRUG - REMARK] PO SCH (09:00)
[2021-07-10] MEDS: Prenatal Vit/FA 1 EACH TABLET PO SCH (11:08)
[2021-07-10] MEDS: Acetaminophen 325 MG TABLET PO SCH ×2 (11:08→19:39)
[2021-07-10] MEDS: Ibuprofen 600 MG TABLET PO SCH ×2 (11:09→19:39)
[2021-07-10] MEDS: Oxytocin 20 units/ LR 1000 mL 20 UNIT/1,000 ML BAG IVC SCH (19:47)
[2021-07-11] MEDS: Ibuprofen 600 MG TABLET PO SCH ×2 (01:35→09:49)
[2021-07-11] MEDS: Acetaminophen 325 MG TABLET PO SCH ×2 (01:35→09:50)
[2021-07-11 01:49] VITALS: TEMP 97.7
[2021-07-11 06:27] LABS: Basophils % 0.1 %; Eosinophils # 0.1 K/mcL (0.0-0.6); Eosinophils % 1.5 %; Hematocrit 27.6 % (35.3-44.9); Immature Granulocytes % 0.2 % (0-4); Lymphocytes # 2.1 K/mcL (0.6-4.6); Lymphocytes % 25.3 %; Mean Corpuscular HGB Conc 32.2 g/dL (31.6-35.5); Mean Corpuscular Hemoglobin 28.1 pg (28.0-33.3); Mean Corpuscular Volume 87.1 fL (83.0-100.0); Mean Platelet Volume 11.6 fL (9.4-12.4); Monocytes # 0.6 K/mcL (0.0-1.3); Monocytes % 7.2 %; Neutrophils # 5.4 K/mcL (1.6-8.9); Platelet Count 182 K/mcL (140-400); Red Blood Count 3.17 M/mcL (3.82-4.97); Segmented Neutrophils % 65.7 %; White Blood Count 8.2 K/mcL (4.3-11.1)
[2021-07-11 06:32] LABS: Hemoglobin 8.9 g/dL (11.5-15.4)
[2021-07-11 07:41] VITALS: BP 126/73; PULSE 95; O2SAT 95
[2021-07-11] MEDS: Prenatal Vit/FA 1 EACH TABLET PO SCH (09:49)
== END 2021-07-11 12:22 | disposition home or self-care (01) | DRG 560 ==
LOC: 1NENULAB 14:32 → 1NENUOBS 07-10 08:11
PROVIDERS: ADMIT Student in an Organized Health Care Education/Training Program; ATTEND Student in an Organized Health Care Education/Training Program